=== PATIENT | female | born 1995 | race Caucasian/White ===

== ENCOUNTER 2021-08-23 09:56 | Inpatient (IN) | payer OTHER ==
[~2021-08-23] VITALS: Ht 162.6 cm; Wt 74.4 kg
[2021-08-23 10:53] LABS: BILIRUBIN NEGATIVE (NEGATIVE); BLOOD 1+ Ery/uL (NEGATIVE); CLARITY CLEAR (CLEAR); COLOR YELLOW (YELLOW); GLUCOSE (U) NORMAL (NORMAL); LEUKOCYTES NEGATIVE Leu/uL (NEGATIVE); NITRITE NEGATIVE (NEGATIVE); PROTEIN NEGATIVE (NEGATIVE); UROBILINOGEN 0.2 mg/dL (0.2-1.0)
[2021-08-23 10:58] LABS: AMPHETAMINES NEGATIVE (NEGATIVE); BARBITURATES NEGATIVE (NEGATIVE); ECSTASY (MDMA) NEGATIVE (NEGATIVE); MARIJUANA (THC) NEGATIVE (NEGATIVE); METHADONE NEGATIVE (NEGATIVE); OPIATES NEGATIVE (NEGATIVE); OXYCODONE NEGATIVE (NEGATIVE)
[2021-08-23 11:01] LABS: BACTERIA 2+; URINARY WBC RARE
[2021-08-23 12:12] LABS: HCT 33.3 % (37.0-47.0); HGB 10.8 g/dl (12.5-16.0); MCH 30.9 pg (25.0-31.0); MCHC 32.4 g/dL (32.0-36.0); MCV 95.1 fL (78.0-100.0); RBC 3.5 M/uL (4.20-5.40); RDW 14.9 % (11.5-14.0); WBC 11.6 K/uL (4.0-10.5)
[2021-08-24 06:53] LABS: HCT 26.2 % (37.0-47.0); HGB 8.5 g/dl (12.5-16.0); MCHC 32.4 g/dL (32.0-36.0); MCV 95.6 fL (78.0-100.0); MPV 9.8 fL (6.0-9.5); RBC 2.74 M/uL (4.20-5.40); RDW 14.9 % (11.5-14.0); WBC 11.4 K/uL (4.0-10.5)
[2021-08-24 20:56] LABS: HCT 30.2 % (37.0-47.0); HGB 10.1 g/dl (12.5-16.0); MCH 31.2 pg (25.0-31.0); MCHC 33.4 g/dL (32.0-36.0); MCV 93.2 fL (78.0-100.0); MPV 9.8 fL (6.0-9.5); RBC 3.24 M/uL (4.20-5.40); RDW 15.1 % (11.5-14.0); WBC 11.6 K/uL (4.0-10.5)
[2021-08-24 21:08] LABS: INR 1.01 (0.9-1.2); PROTHROMBIN TIME 12.7 SECONDS (11.8-13.4)
[2021-08-24 21:09] LABS: PTT 37.7 SECONDS (24.4-34.7)
[2021-08-25 07:51] LABS: HCT 32.1 % (37.0-47.0); HGB 10.6 g/dl (12.5-16.0); MCV 93.9 fL (78.0-100.0); MPV 9.8 fL (6.0-9.5); RBC 3.42 M/uL (4.20-5.40); RDW 15.2 % (11.5-14.0); WBC 11.4 K/uL (4.0-10.5)
[2021-08-25] MEDS ORDERED: ACETAMINOPHEN325 MG PO (07:55)
[2021-08-25] MEDS ORDERED: KETOROLAC TROME10 MG PO (07:55)
[2021-08-25] MEDS ORDERED: SIMETHICONE80 MG PO (07:56)
[2021-08-25] MEDS ORDERED: PRENATAL FORMU1 EACH PO (07:57)
[2021-08-25] MEDS ORDERED: COLACE100 MG PO (07:57)
[2021-08-25] MEDS ORDERED: FEROSUL325 MG PO (07:58)
== END 2021-08-25 13:57 | disposition home or self-care (01) | DRG 787 ==
LOC: FOB 09:56 → FOD 09:56 → FOB 12:02
PROVIDERS: Specialist; ADMIT Obstetrics & Gynecology
PROC: 30233N1 Transfusion of Nonautologous Red Blood Cells into Peripheral Vein, Percutaneous Approach (ICD-10-PCS; 2021-08-23)
PROC: 10D00Z1 Extraction of Products of Conception, Low, Open Approach (ICD-10-PCS; principal; 2021-08-23 13:30)
DX: O34.211 Maternal care for low transverse scar from previous cesarean delivery (principal); D62 Acute posthemorrhagic anemia; N85.8 Other specified noninflammatory disorders of uterus; Z3A.39 39 weeks gestation of pregnancy; Z37.0 Single live birth; Z20.822 Contact with and (suspected) exposure to COVID-19; O90.81 Anemia of the puerperium; Z86.16 Personal history of COVID-19; Z87.09 Personal history of other diseases of the respiratory system; Z82.61 Family history of arthritis; Z83.42 Family history of familial hypercholesterolemia; Z82.49 Family history of ischemic heart disease and other diseases of the circulatory system; Z80.0 Family history of malignant neoplasm of digestive organs
CPT/HCPCS: 36415; 36430; 80305; 81001; 85610; 85730; 86850; 86900; 86901; 86922; 87088; 93005; J0690; J1885; J2274; J2370; J2405; J2916; J3010; J7030; J7120; P9016; U0002